=== PATIENT | female | born 1940 | race Caucasian/White ===

== ENCOUNTER 2017-08-28 22:49 | Observation (INO) ==
[2017-08-28] MEDS ORDERED: MECLIZINE 25 MG TABLET PO STA (23:36)
[2017-08-28] MEDS ORDERED: ONDANSETRON 4 MG/2 ML VIAL IV STA (23:36)
[2017-08-28] MEDS ORDERED: ONDANSETRON 4 MG/2 ML VIAL ONE (23:55)
[2017-08-28] MEDS ORDERED: MECLIZINE 25 MG TABLET ONE (23:55)
[2017-08-29 00:23] LABS: Basophils % 0.3 % (0.0-0.8); Eosinophils % 0.1 % (0.00-10.9); Hematocrit 32.1 VOL% (35.7-47.0); Hemoglobin 11.1 GM/DL (12.0-16.0); Immature Granulocytes % 0.3 %; Immature Granulocytes Absolute 0.02 #; Lymphocytes # 1.3 10*3/uL (1.4-4.0); Lymphocytes % 18.2 % (21.3-54.2); Mean Corpuscular HGB Conc 34.6 GM/DL (32-36); Mean Corpuscular Hemoglobin 30 PG (27-34); Mean Corpuscular Volume 87.7 FL (87-102); Mean Platelet Volume 9.9 FL (9.6-12.0); Monocytes # 0.7 10*3/uL (0.11-0.8); Monocytes % 10.1 % (1.7-12.7); Neutrophils # 5.1 10*3/uL (1.4-7.4); Platelet Count 253 T/CUMM (130-400); Red Blood Count 3.66 MC/CUMM (3.8-5.5); Red Cell Distribution Width 12.6 % (9.3-17.3); White Blood Count 7.2 T/CUMM (4-12)
[2017-08-29 00:32] LABS: PT Patient Result 10.1 SECS
[2017-08-29 00:56] LABS: Alanine Aminotransferase 15 U/L (13-56); Albumin 3.6 G/DL (3.4-5.0); Alkaline Phosphatase 71 U/L (45-117); Aspartate Amino Transferase 18 U/L (0-37); Blood Urea Nitrogen 17 MG/DL (7-18); Calcium 9.2 MG/DL (8.5-10.1); Free T4 (Free Thyroxine) 1.19 NG/DL (0.76-1.46); Glucose 107 MG/DL (74-106); Osmolality,Calculated 271.1 MOS/KG (273-304); Potassium 3.5 MMOL/L (3.5-5.1); Sodium 135 MMOL/L (136-145); Total Protein 6.8 G/DL (6.4-8.3); Troponin I Only < 0.015 NG/ML (0.00-0.045)
[2017-08-29 01:21] LABS: Apearance,Urine CLEAR (Clear); Bilirubin,Urine Negative (Negative); Blood, Urine Small mg/dL (Negative); Glucose,Urine (UA) Negative (Negative); Ketones,Urine Negative (Negative); Mucus,Urine Occasional /LPF (Occasional); Nitrite,Urine Negative (Negative); Protein,Urine Negative; RBC,Urine 2 /HPF (0-4); Urine Color Yellow (Yellow); Urine Specific Gravity 1.011 (1.001-1.035); Urine Urobilinogen < 2.0 EU/DL (0.2-1.0); WBC,Urine <1 /HPF (0-6)
[2017-08-29 02:17] LABS: Barbiturates Screen,Urine Negative (Negative); Benzodiazepines Screen,Urine Positive (Negative); Cannabinoid Screen,Urine Negative (Negative); Opiate Screen,Urine Negative (Negative); Phencyclidine Screen,Urine Negative (Negative)
[2017-08-29] MEDS ORDERED: GLUCAGON 1 MG VIAL IM PRN (02:20)
[2017-08-29] MEDS ORDERED: DEXTROSE 50% 25 GM/50 ML VIAL IV PRN (02:20)
[2017-08-29 03:27] LABS: Basophils % 0.2 % (0.0-0.8); Eosinophils % 0.2 % (0.00-10.9); Hematocrit 32.2 VOL% (35.7-47.0); Hemoglobin 11.2 GM/DL (12.0-16.0); Immature Granulocytes % 0.3 %; Immature Granulocytes Absolute 0.02 #; Lymphocytes # 1.9 10*3/uL (1.4-4.0); Lymphocytes % 29.3 % (21.3-54.2); Mean Corpuscular HGB Conc 34.8 GM/DL (32-36); Mean Corpuscular Hemoglobin 31 PG (27-34); Mean Corpuscular Volume 88.7 FL (87-102); Mean Platelet Volume 9.5 FL (9.6-12.0); Monocytes # 0.8 10*3/uL (0.11-0.8); Monocytes % 12.3 % (1.7-12.7); Neutrophils # 3.7 10*3/uL (1.4-7.4); Neutrophils % 57.7 % (38.7-73.9); Platelet Count 248 T/CUMM (130-400); Red Blood Count 3.63 MC/CUMM (3.8-5.5); Red Cell Distribution Width 12.7 % (9.3-17.3); White Blood Count 6.4 T/CUMM (4-12)
[2017-08-29 03:50] LABS: Risk Ratio 3.56; VLDL CHOLESTEROL 32.8 MG/DL
[2017-08-29 03:52] LABS: Calcium 9.1 MG/DL (8.5-10.1); Osmolality,Calculated 271.1 MOS/KG (273-304); Potassium 3.7 MMOL/L (3.5-5.1)
[2017-08-29] MEDS: CLORAZEPATE 3.75 MG TABLET PO SCH ×2 (09:45→22:17)
[2017-08-29] MEDS: CHOLECALCIFEROL 1,000 UNIT TABLET PO SCH (09:45)
[2017-08-29] MEDS: CITALOPRAM 20 MG TABLET PO SCH (09:45)
[2017-08-29] MEDS: INSULIN LISPRO 100 UNIT/ML SUBCUT SCH ×4 (09:45→22:16)
[2017-08-29] MEDS: ENOXAPARIN 30 MG/0.3 ML SYRINGE SUBCUT SCH (09:46)
[2017-08-29] MEDS: ESCITALOPRAM 10 MG TABLET PO SCH ×2 (09:46→22:17)
[2017-08-29] MEDS: PRAVASTATIN 40 MG TABLET PO SCH (09:46)
[2017-08-29] MEDS: CETIRIZINE 10 MG TABLET PO SCH (09:46)
[2017-08-29] MEDS: CILOSTAZOL 50 MG TABLET PO SCH ×2 (09:46→18:42)
[2017-08-29] MEDS: POTASSIUM CHLORIDE 8 MEQ CAPSULE PO SCH (09:46)
[2017-08-30 06:27] LABS: Folate 15.8 NG/ML (5.4-24.0)
[2017-08-30] MEDS: PRAVASTATIN 40 MG TABLET PO SCH (10:01)
[2017-08-30] MEDS: ESCITALOPRAM 10 MG TABLET PO SCH ×2 (10:01→21:53)
[2017-08-30] MEDS: POTASSIUM CHLORIDE 8 MEQ CAPSULE PO SCH (10:01)
[2017-08-30] MEDS: CITALOPRAM 20 MG TABLET PO SCH (10:01)
[2017-08-30] MEDS: CLORAZEPATE 3.75 MG TABLET PO SCH ×2 (10:02→21:53)
[2017-08-30] MEDS: CETIRIZINE 10 MG TABLET PO SCH (10:02)
[2017-08-30] MEDS: CILOSTAZOL 50 MG TABLET PO SCH ×2 (10:02→18:02)
[2017-08-30] MEDS: ENOXAPARIN 30 MG/0.3 ML SYRINGE SUBCUT SCH (10:02)
[2017-08-30] MEDS: CHOLECALCIFEROL 1,000 UNIT TABLET PO SCH (10:02)
[2017-08-30] MEDS: INSULIN LISPRO 100 UNIT/ML SUBCUT SCH ×3 (11:06→16:55)
[2017-08-30 11:57] LABS: Calcium 8.8 MG/DL (8.5-10.1); Magnesium 2.2 MG/DL (1.8-2.4); Osmolality,Calculated 276.8 MOS/KG (273-304)
[2017-08-31] MEDS: INSULIN LISPRO 100 UNIT/ML SUBCUT SCH ×3 (01:19→13:02)
[2017-08-31 04:43] LABS: Basophils % 0.6 % (0.0-0.8); Eosinophils # 0.1 10*3/uL (0.0-0.87); Eosinophils % 1.9 % (0.00-10.9); Hematocrit 35.6 VOL% (35.7-47.0); Hemoglobin 11.8 GM/DL (12.0-16.0); Immature Granulocytes % 0.1 %; Immature Granulocytes Absolute 0.01 #; Lymphocytes # 2.6 10*3/uL (1.4-4.0); Lymphocytes % 38.5 % (21.3-54.2); Mean Corpuscular HGB Conc 33.1 GM/DL (32-36); Mean Corpuscular Hemoglobin 30 PG (27-34); Mean Corpuscular Volume 91.8 FL (87-102); Mean Platelet Volume 10.4 FL (9.6-12.0); Monocytes # 0.6 10*3/uL (0.11-0.8); Monocytes % 8.7 % (1.7-12.7); Neutrophils # 3.4 10*3/uL (1.4-7.4); Neutrophils % 50.2 % (38.7-73.9); Platelet Count 264 T/CUMM (130-400); Red Blood Count 3.88 MC/CUMM (3.8-5.5); Red Cell Distribution Width 12.9 % (9.3-17.3); White Blood Count 6.8 T/CUMM (4-12)
[2017-08-31 05:02] LABS: Magnesium 2.3 MG/DL (1.8-2.4); Osmolality,Calculated 278.8 MOS/KG (273-304); Potassium 4.1 MMOL/L (3.5-5.1)
[2017-08-31] MEDS ORDERED: CYANOCOBALAMIN 1000 MCG/1 ML VIAL SUBCUT SCH (09:00)
[2017-08-31] MEDS: CITALOPRAM 20 MG TABLET PO SCH (09:03)
[2017-08-31] MEDS: CILOSTAZOL 50 MG TABLET PO SCH (09:03)
[2017-08-31] MEDS: POTASSIUM CHLORIDE 8 MEQ CAPSULE PO SCH (09:03)
[2017-08-31] MEDS: ESCITALOPRAM 10 MG TABLET PO SCH (09:04)
[2017-08-31] MEDS: CLORAZEPATE 3.75 MG TABLET PO SCH (09:04)
[2017-08-31] MEDS: PRAVASTATIN 40 MG TABLET PO SCH (09:04)
[2017-08-31] MEDS: CETIRIZINE 10 MG TABLET PO SCH (09:04)
[2017-08-31] MEDS: CHOLECALCIFEROL 1,000 UNIT TABLET PO SCH (09:04)
[2017-08-31] MEDS: ENOXAPARIN 30 MG/0.3 ML SYRINGE SUBCUT SCH (09:05)
[2017-08-31 12:15] VITALS: BP 106/64
== END 2017-08-31 13:50 | disposition home health service (06) ==
LOC: EDBD → EDUNIT# → N.EDINP 22:49 → N.ED 22:49 → SUATTDRO 08-29 02:05 → N.TELES 08-29 02:33
PROVIDERS: ADMIT Hospitalist; ATTEND Internal Medicine

== ENCOUNTER 2017-10-26 10:45 | Inpatient (IN) ==
[2017-10-26 11:59] LABS: Basophils % 0.1 % (0.0-0.8); Hematocrit 37.5 VOL% (35.7-47.0); Hemoglobin 12.5 GM/DL (12.0-16.0); Immature Granulocytes % 0.6 %; Immature Granulocytes Absolute 0.06 #; Lymphocytes # 0.6 10*3/uL (1.4-4.0); Lymphocytes % 5.6 % (21.3-54.2); Mean Corpuscular HGB Conc 33.3 GM/DL (32-36); Mean Corpuscular Hemoglobin 29 PG (27-34); Mean Platelet Volume 9.9 FL (9.6-12.0); Monocytes # 0.1 10*3/uL (0.11-0.8); Monocytes % 0.8 % (1.7-12.7); Neutrophils # 9.9 10*3/uL (1.4-7.4); Neutrophils % 92.9 % (38.7-73.9); Platelet Count 377 T/CUMM (130-400); Red Blood Count 4.31 MC/CUMM (3.8-5.5); Red Cell Distribution Width 12.5 % (9.3-17.3); White Blood Count 10.6 T/CUMM (4-12)
[2017-10-26 12:18] LABS: Lymphocytes 7 % (20-55); Platelet Estimate Adequate; Segmented Neutrophils 92 % (50-85); Total Cells Counted 100
[2017-10-26 12:19] LABS: Giant Platelets Few; Hypochromasia 1+
[2017-10-26 12:23] LABS: Albumin 3.6 G/DL (3.4-5.0); Bilirubin,Total 0.4 MG/DL (0.2-1.0); Calcium 9.1 MG/DL (8.5-10.1); Potassium 4.1 MMOL/L (3.5-5.1); Total Protein 8.3 G/DL (6.4-8.3)
[2017-10-26 13:49] LABS: Apearance,Urine CLEAR (Clear); Bilirubin,Urine Negative (Negative); Blood, Urine Negative (Negative); Glucose,Urine (UA) Negative (Negative); Ketones,Urine Negative (Negative); Mucus,Urine Occasional /LPF (Occasional); Nitrite,Urine Negative (Negative); Protein,Urine Negative; RBC,Urine <1 /HPF (0-4); Urine Color Yellow (Yellow); Urine Specific Gravity 1.009 (1.001-1.035); Urine Urobilinogen < 2.0 EU/DL (0.2-1.0); WBC,Urine 1 /HPF (0-6)
[2017-10-26] MEDS ORDERED: DOCUSATE SODIUM 100 MG CAPSULE PO PRN (16:37)
[2017-10-26] MEDS ORDERED: LACTULOSE 20 GM/30 ML UDCUP PO PRN (16:37)
[2017-10-26] MEDS ORDERED: ONDANSETRON 4 MG/2 ML VIAL IV PRN (16:37)
[2017-10-26] MEDS ORDERED: DEXTROSE 50% 25 GM/50 ML VIAL IV PRN (16:38)
[2017-10-26] MEDS ORDERED: GLUCAGON 1 MG VIAL IM PRN (16:38)
[2017-10-26] MEDS ORDERED: ALBUTEROL/IPRATROPIUM 3 ML NEB RESP TX SCH (17:00)
[2017-10-26] MEDS: SODIUM CHLORIDE 0.9% 1,000 ML IV SCH (18:11)
[2017-10-26] MEDS ORDERED: PIPERACILLIN/TAZOBACTAM 3,375 MG in SODIUM CHLORIDE 0.9% 100 ML IV SCH (19:30)
[2017-10-26] MEDS: ALBUTEROL/IPRATROPIUM 3 ML NEB RESP TX SCH (19:45)
[2017-10-26] MEDS: INSULIN LISPRO 100 UNIT/ML SUBCUT SCH (23:46)
[2017-10-26] MEDS: MEROPENEM 500 MG in SYRINGE 1 EACH IV SCH (23:53)
[2017-10-27] MEDS: ALBUTEROL/IPRATROPIUM 3 ML NEB RESP TX SCH ×5 (02:11→23:55)
[2017-10-27 04:51] LABS: Basophils % 0.3 % (0.0-0.8); Eosinophils % 0.2 % (0.00-10.9); Hematocrit 31.5 VOL% (35.7-47.0); Hemoglobin 10.3 GM/DL (12.0-16.0); Immature Granulocytes % 0.5 %; Immature Granulocytes Absolute 0.05 #; Lymphocytes # 3.7 10*3/uL (1.4-4.0); Lymphocytes % 34.9 % (21.3-54.2); Mean Corpuscular HGB Conc 32.7 GM/DL (32-36); Mean Corpuscular Hemoglobin 29 PG (27-34); Mean Corpuscular Volume 88.2 FL (87-102); Monocytes # 0.9 10*3/uL (0.11-0.8); Monocytes % 8.3 % (1.7-12.7); Neutrophils # 5.8 10*3/uL (1.4-7.4); Neutrophils % 55.8 % (38.7-73.9); Platelet Count 323 T/CUMM (130-400); Red Blood Count 3.57 MC/CUMM (3.8-5.5); Red Cell Distribution Width 12.6 % (9.3-17.3); White Blood Count 10.5 T/CUMM (4-12)
[2017-10-27 05:27] LABS: Bilirubin,Total 0.4 MG/DL (0.2-1.0); Calcium 8.6 MG/DL (8.5-10.1); Osmolality,Calculated 286.3 MOS/KG (273-304); Risk Ratio 3.14; Total Protein 5.8 G/DL (6.4-8.3); VLDL CHOLESTEROL 32.4 MG/DL
[2017-10-27] MEDS: SODIUM CHLORIDE 0.9% 1,000 ML IV SCH (06:11)
[2017-10-27] MEDS: INSULIN LISPRO 100 UNIT/ML SUBCUT SCH ×3 (07:53→16:58)
[2017-10-27] MEDS: PANTOPRAZOLE 40 MG TABLET PO SCH (09:54)
[2017-10-27] MEDS: MEROPENEM 500 MG in SYRINGE 1 EACH IV SCH ×2 (09:55→23:30)
[2017-10-27 12:24] LABS: PT Patient Result 10.1 SECS
[2017-10-28] MEDS: SODIUM CHLORIDE 0.9% 1,000 ML IV SCH (01:30)
[2017-10-28] MEDS: INSULIN LISPRO 100 UNIT/ML SUBCUT SCH ×4 (02:12→19:03)
[2017-10-28 03:40] LABS: Basophils % 0.4 % (0.0-0.8); Eosinophils # 0.1 10*3/uL (0.0-0.87); Eosinophils % 1.2 % (0.00-10.9); Hematocrit 32.3 VOL% (35.7-47.0); Hemoglobin 10.3 GM/DL (12.0-16.0); Immature Granulocytes % 0.4 %; Immature Granulocytes Absolute 0.04 #; Lymphocytes % 32.3 % (21.3-54.2); Mean Corpuscular HGB Conc 31.9 GM/DL (32-36); Mean Corpuscular Hemoglobin 29 PG (27-34); Mean Corpuscular Volume 90.2 FL (87-102); Mean Platelet Volume 10.1 FL (9.6-12.0); Monocytes # 0.8 10*3/uL (0.11-0.8); Monocytes % 8.1 % (1.7-12.7); Neutrophils # 5.4 10*3/uL (1.4-7.4); Neutrophils % 57.6 % (38.7-73.9); Platelet Count 267 T/CUMM (130-400); Red Blood Count 3.58 MC/CUMM (3.8-5.5); Red Cell Distribution Width 12.8 % (9.3-17.3); White Blood Count 9.3 T/CUMM (4-12)
[2017-10-28 04:07] LABS: Calcium 8.5 MG/DL (8.5-10.1); Osmolality,Calculated 284.4 MOS/KG (273-304); Potassium 3.9 MMOL/L (3.5-5.1)
[2017-10-28] MEDS: ALBUTEROL/IPRATROPIUM 3 ML NEB RESP TX SCH ×3 (07:32→20:01)
[2017-10-28] MEDS: MEROPENEM 500 MG in SYRINGE 1 EACH IV SCH ×2 (10:58→22:03)
[2017-10-28] MEDS: PANTOPRAZOLE 40 MG TABLET PO SCH (10:58)
[2017-10-29 05:14] LABS: Basophils % 0.3 % (0.0-0.8); Eosinophils # 0.2 10*3/uL (0.0-0.87); Eosinophils % 1.5 % (0.00-10.9); Hematocrit 33.6 VOL% (35.7-47.0); Hemoglobin 10.9 GM/DL (12.0-16.0); Immature Granulocytes % 0.4 %; Immature Granulocytes Absolute 0.04 #; Lymphocytes # 2.7 10*3/uL (1.4-4.0); Lymphocytes % 26.9 % (21.3-54.2); Mean Corpuscular HGB Conc 32.4 GM/DL (32-36); Mean Corpuscular Hemoglobin 29 PG (27-34); Mean Corpuscular Volume 88.4 FL (87-102); Mean Platelet Volume 10.2 FL (9.6-12.0); Monocytes # 0.9 10*3/uL (0.11-0.8); Monocytes % 8.8 % (1.7-12.7); Neutrophils # 6.3 10*3/uL (1.4-7.4); Neutrophils % 62.1 % (38.7-73.9); Platelet Count 275 T/CUMM (130-400); Red Cell Distribution Width 12.7 % (9.3-17.3); White Blood Count 10.1 T/CUMM (4-12)
[2017-10-29 05:38] LABS: Calcium 8.7 MG/DL (8.5-10.1); Osmolality,Calculated 280.7 MOS/KG (273-304); Potassium 3.9 MMOL/L (3.5-5.1)
[2017-10-29] MEDS ORDERED: PROMETHAZINE 25 MG/1 ML VIAL IM ONE (06:30)
[2017-10-29] MEDS: ALBUTEROL/IPRATROPIUM 3 ML NEB RESP TX SCH ×4 (06:59→20:16)
[2017-10-29] MEDS ORDERED: MIDAZOLAM 2 MG/2 ML VIAL IV ONE (08:30)
[2017-10-29] MEDS ORDERED: LIDOCAINE 1% 20 ML VIAL MISC INJ ONE (08:30)
[2017-10-29] MEDS ORDERED: LIDOCAINE 2% 20 ML VIAL RESP TX ONE (08:30)
[2017-10-29] MEDS ORDERED: MEROPENEM 1,000 MG in SYRINGE 1 EACH IV SCH (09:00)
[2017-10-29] MEDS ORDERED: GLUCAGON 1 MG VIAL IM PRN (09:46)
[2017-10-29] MEDS ORDERED: MIDAZOLAM 2 MG/2 ML VIAL ONE (09:48)
[2017-10-29] MEDS ORDERED: SODIUM CHLORIDE 0.9% 1,000 ML IV SCH (10:00)
[2017-10-29] MEDS: INSULIN LISPRO 100 UNIT/ML SUBCUT SCH ×3 (10:30→16:57)
[2017-10-29] MEDS: PANTOPRAZOLE 40 MG TABLET PO SCH (10:43)
[2017-10-29] MEDS: SODIUM CHLORIDE 0.9% 1,000 ML IV SCH (14:03)
[2017-10-29] MEDS: CILOSTAZOL 50 MG TABLET PO SCH (16:36)
[2017-10-29] MEDS: ESCITALOPRAM 10 MG TABLET PO SCH (20:50)
[2017-10-29] MEDS: MECLIZINE 25 MG TABLET PO SCH (20:50)
[2017-10-30] MEDS: ALBUTEROL/IPRATROPIUM 3 ML NEB RESP TX SCH ×4 (01:19→21:32)
[2017-10-30] MEDS: INSULIN LISPRO 100 UNIT/ML SUBCUT SCH ×6 (02:44→22:02)
[2017-10-30] MEDS: SODIUM CHLORIDE 0.9% 1,000 ML IV SCH (02:45)
[2017-10-30] MEDS: CILOSTAZOL 50 MG TABLET PO SCH ×2 (06:32→16:57)
[2017-10-30 07:12] LABS: Basophils % 0.3 % (0.0-0.8); Eosinophils # 0.2 10*3/uL (0.0-0.87); Eosinophils % 2.1 % (0.00-10.9); Hematocrit 30.5 VOL% (35.7-47.0); Hemoglobin 10.2 GM/DL (12.0-16.0); Immature Granulocytes % 0.3 %; Immature Granulocytes Absolute 0.02 #; Lymphocytes # 2.1 10*3/uL (1.4-4.0); Lymphocytes % 26.8 % (21.3-54.2); Mean Corpuscular HGB Conc 33.4 GM/DL (32-36); Mean Corpuscular Hemoglobin 29 PG (27-34); Mean Corpuscular Volume 87.1 FL (87-102); Mean Platelet Volume 10.1 FL (9.6-12.0); Monocytes # 0.7 10*3/uL (0.11-0.8); Monocytes % 9.6 % (1.7-12.7); Neutrophils # 4.7 10*3/uL (1.4-7.4); Neutrophils % 60.9 % (38.7-73.9); Platelet Count 248 T/CUMM (130-400); Red Cell Distribution Width 12.8 % (9.3-17.3); White Blood Count 7.7 T/CUMM (4-12)
[2017-10-30 07:26] LABS: Calcium 8.3 MG/DL (8.5-10.1); Osmolality,Calculated 285.4 MOS/KG (273-304); Potassium 3.9 MMOL/L (3.5-5.1)
[2017-10-30] MEDS: metFORMIN 500 MG TABLET PO SCH (10:14)
[2017-10-30] MEDS: CITALOPRAM 20 MG TABLET PO SCH (10:14)
[2017-10-30] MEDS: MECLIZINE 25 MG TABLET PO SCH ×2 (10:14→20:52)
[2017-10-30] MEDS: PANTOPRAZOLE 40 MG TABLET PO SCH (10:15)
[2017-10-30] MEDS: ESCITALOPRAM 10 MG TABLET PO SCH ×2 (10:15→20:52)
[2017-10-30] MEDS: LISINOPRIL 10 MG TABLET PO SCH (10:15)
[2017-10-30] MEDS: PRAVASTATIN 40 MG TABLET PO SCH (10:15)
[2017-10-31] MEDS: ALBUTEROL/IPRATROPIUM 3 ML NEB RESP TX SCH ×3 (00:07→12:42)
[2017-10-31] MEDS: SODIUM CHLORIDE 0.9% 1,000 ML IV SCH (05:44)
[2017-10-31] MEDS: INSULIN LISPRO 100 UNIT/ML SUBCUT SCH ×2 (07:33→11:34)
[2017-10-31] MEDS ORDERED: LEVOFLOXACIN 500 MG TABLET PO SCH (09:00)
[2017-10-31] MEDS: ESCITALOPRAM 10 MG TABLET PO SCH (09:05)
[2017-10-31] MEDS: CILOSTAZOL 50 MG TABLET PO SCH (09:05)
[2017-10-31] MEDS: CITALOPRAM 20 MG TABLET PO SCH (09:05)
[2017-10-31] MEDS: metFORMIN 500 MG TABLET PO SCH (09:05)
[2017-10-31] MEDS: LISINOPRIL 10 MG TABLET PO SCH (09:05)
[2017-10-31] MEDS: PRAVASTATIN 40 MG TABLET PO SCH (09:06)
[2017-10-31] MEDS: MECLIZINE 25 MG TABLET PO SCH (09:06)
[2017-10-31] MEDS: PANTOPRAZOLE 40 MG TABLET PO SCH (09:06)
[2017-10-31 11:48] VITALS: BP 143/76
== END 2017-10-31 14:15 | disposition home health service (06) | DRG 202 ==
LOC: N.ED 10:45 → SUATTDRO 15:00 → N.EDINP 15:00 → N.2E 17:41
PROVIDERS: ADMIT Internal Medicine; ATTEND Pediatrics
PROC: BRONCHB (2017-10-29 08:35)